=== PATIENT | female | born 1945 | race Caucasian/White ===

== ENCOUNTER 2016-05-03 16:22 | Inpatient (IN) | payer OTHER, BC ==
[~2016-05-03] VITALS: Ht 162.6 cm; Wt 64.6 kg
[~2016-05-03 16:22] MED LIST: ASCORBIC ACID500 M3 PO; BISACODYL5 MG PO; CELEBREX100 MG PO; FOLIC ACID1 MG PO; GABAPENTIN100 MG PO; METOPROLOL SUCC25 MG PO; MILK OF MAGNESI10 ML PO; ONDANSETRON4 MG/2 ML IV; OXYCODONE HCL5 MG PO; OXYCODONE-APAP1 EACH PO; SENNA PLUS TAB1 EACH PO; THERAGRAN1 TABLET PO; TIZANIDINE HCL4 MG PO
[2016-05-03 17:38] VITALS: BP 129/60
[2016-05-03 19:30] VITALS: BP 126/63
[2016-05-03 19:36] LABS: EOSINOPHIL (%) 0.5 % (0-5); EOSINOPHIL COUNT 0.1 K/uL (0-0.3); HEMATOCRIT 33.3 % (36.0-46.0); IMMATURE GRANULOCYTE (%) 0.3 % (0.0-0.7); IMMATURE GRANULOCYTE COUNT 0.1 K/uL; LYMPHOCYTE COUNT 2.1 K/uL (1.0-2.8); MCH 30.9 PG (29.0-34.0); MCHC 33.6 G/DL (30.0-36.0); MEAN PLAT.VOLUME 10.6 uM^3 (9.5-12.4); MONOCYTE (%) 8.7 % (3-12); MONOCYTE COUNT 1.5 K/uL (0-0.8); NEUTROPHIL (%) 77.6 % (45-76); NEUTROPHIL COUNT 13.1 K/uL (1.8-6.4); PLATELET COUNT 311 K/uL (156-360); RBC DIS.WIDTH-SD 46.8 % (39-53); RED BLOOD COUNT 3.62 M/uL (3.80-5.20); WHITE BLOOD COUNT 16.9 K/uL (4.1-10.2)
[2016-05-03 20:00] LABS: ANION GAP 12 MEQ/L (2-14); CHLORIDE 101 MEQ/L (99-109); GFR ESTIMATE (CALCULATED) > 59 mL/min/; GLUCOSE 140 mg/dL (70-99); SAMPLE HEMOLYSIS CHECK 0; SAMPLE ICTERIC CHECK 0; SAMPLE LIPEMIA CHECK 0; SODIUM 137 MEQ/L (136-147); UREA NITROGEN (BUN) 19 mg/dL (9-23)
[2016-05-03 20:14] LABS: ERTH.SED.RATE 56 MM/HR (0-30)
[2016-05-04] VITALS (7 sets, daily range): BP systolic 110–136; BP diastolic 51–60
[2016-05-04 17:42] LABS: ADD MIUA? YES; BILIRUBIN NEGATIVE; BLOOD SMALL; COLOR YELLOW ((YELLOW)); GLUCOSE (STRIP) NEGATIVE; KETONES NEGATIVE; LEUKOCYTES SMALL; NITRITE NEGATIVE; PROTEIN (STRIP) 30; SPECIFIC GRAVITY 1.012 (1.000-1.030); UROBILINOGEN 0.2 MG/DL (0.2-1.0)
[2016-05-04 19:14] LABS: BACTERIA RARE /HPF; EPITHELIAL CELLS NONE SEEN /HPF; MUCUS NONE SEEN /LPF; RED BLOOD CELLS 0-5 /HPF (0-5); UCUL ADDED? NO
[2016-05-05 08:30] VITALS: BP 100/53
[2016-05-05 16:25] VITALS: BP 113/54
[2016-05-05 23:28] VITALS: BP 134/82
[2016-05-06 08:00] VITALS: BP 142/63
[2016-05-06 17:47] VITALS: BP 136/63
[2016-05-06 19:38] VITALS: BP 123/58
[2016-05-07 00:13] VITALS: BP 140/67
[2016-05-07 07:32] VITALS: BP 113/55
[2016-05-07 09:14] LABS: ANION GAP 6 MEQ/L (2-14); CHLORIDE 103 MEQ/L (99-109); GFR ESTIMATE (CALCULATED) > 59 mL/min/; GLUCOSE 126 mg/dL (70-99); POTASSIUM 4.4 MEQ/L (3.7-5.4); SAMPLE HEMOLYSIS CHECK 0; SAMPLE ICTERIC CHECK 0; SAMPLE LIPEMIA CHECK 0; SODIUM 138 MEQ/L (136-147); UREA NITROGEN (BUN) 9 mg/dL (9-23)
[2016-05-07 09:46] LABS: HEMATOCRIT 30.5 % (36.0-46.0); MCH 30.7 PG (29.0-34.0); MCHC 33.1 G/DL (30.0-36.0); MCV 92.7 FL (83-99); MEAN PLAT.VOLUME 10.5 uM^3 (9.5-12.4); PLATELET COUNT 397 K/uL (156-360); RBC DIS.WIDTH-CV 14.1 % (11.8-14.6); RBC DIS.WIDTH-SD 47.9 % (39-53); RED BLOOD COUNT 3.29 M/uL (3.80-5.20)
[2016-05-07 10:24] LABS: WHITE BLOOD COUNT 9.5 K/uL (4.1-10.2)
[2016-05-07 16:30] VITALS: BP 115/69
[2016-05-08 00:22] VITALS: BP 131/60
[2016-05-08 07:50] VITALS: BP 128/58
[2016-05-08 11:58] VITALS: BP 129/58
[2016-05-08 16:33] VITALS: BP 144/60
[2016-05-09 00:17] VITALS: BP 138/64
[2016-05-09 08:03] VITALS: BP 135/59
[2016-05-09 16:20] VITALS: BP 127/61
[2016-05-09 23:43] VITALS: BP 123/58
[2016-05-10 07:16] VITALS: BP 146/68
[2016-05-10 15:14] VITALS: BP 145/63
[2016-05-10 23:40] VITALS: BP 140/60
[2016-05-11 07:26] VITALS: BP 154/69
[2016-05-11] MEDS ORDERED: OXYCODONE HCL5 MG PO (14:50)
[2016-05-11] MEDS ORDERED: FENTANYL1 EAC4 TD (14:50)
[2016-05-11] MEDS ORDERED: TRAZODONE HCL50 MG PO (14:50)
[2016-05-11] MEDS ORDERED: CHLORZOXAZONE500 MG PO (14:56)
[2016-05-11 16:30] VITALS: BP 134/60
[2016-05-11] MEDS ORDERED: ANCEF,KEFZ2 GM/100 M IV (16:49)
[2016-05-12 01:02] VITALS: BP 129/60
[2016-05-12 08:26] VITALS: BP 145/67
[2016-05-12 16:30] VITALS: BP 140/63
== END 2016-05-12 17:05 | disposition home health service (06) | DRG 463 ==
LOC: 3EAST 16:22
PROVIDERS: Neurological Surgery; Physician Assistant Surgical
PROC: 0JX70ZC Transfer Back Subcutaneous Tissue and Fascia with Skin, Subcutaneous Tissue and Fascia, Open Approach (ICD-10-PCS; principal; 2016-05-06)
PROC: 0JN Subcutaneous Tissue and Fascia, Release (ICD-10-PCS; principal; 2016-05-06)
PROC: 0PP404Z Removal of Internal Fixation Device from Thoracic Vertebra, Open Approach (ICD-10-PCS; principal; 2016-05-06)
PROC: 0JB70ZZ Excision of Back Subcutaneous Tissue and Fascia, Open Approach (ICD-10-PCS; principal; 2016-05-06)
DX: T84.63XA Infection and inflammatory reaction due to internal fixation device of spine, initial encounter (principal); A41.9 Sepsis, unspecified organism; T81.31XA Disruption of external operation (surgical) wound, not elsewhere classified, initial encounter; L03.312 Cellulitis of back [any part except buttock and flank]; B95.61 Methicillin susceptible Staphylococcus aureus infection as the cause of diseases classified elsewhere; Y83.1 Surgical operation with implant of artificial internal device as the cause of abnormal reaction of the patient, or of later complication, without mention of misadventure at the time of the procedure; I10 Essential (primary) hypertension; M40.204 Unspecified kyphosis, thoracic region; M81.0 Age-related osteoporosis without current pathological fracture; S22.041D Stable burst fracture of fourth thoracic vertebra, subsequent encounter for fracture with routine healing; S42.101D Fracture of unspecified part of scapula, right shoulder, subsequent encounter for fracture with routine healing; Z79.82 Long term (current) use of aspirin; Z87.891 Personal history of nicotine dependence
CPT/HCPCS: 71020; 72128; 72157; 76937; 80048; 81003; 82040; 84466; 85025; 85027; 85651; 86140; 87040; 87070; 87075; 87077; 87147; 87186; 87205; 87801; 93005; 94760; 94799; 97530 GO; 97530 GP; J0690; J0696; J1100; J1170; J1580; J2250; J2405; J2710; J2930; J3010; J3370; J3480; J7030; J7050; S0020